=== PATIENT | female | born 1940 | race Caucasian/White ===

== ENCOUNTER 2022-04-24 12:37 | Inpatient (IN) | payer OTHER, MEDICAID ==
[~2022-04-24] VITALS: Ht 170.2 cm; Wt 81.6 kg
[~2022-04-24 12:37] MED LIST: ACET-2619 PO; ANTACID PO; ATI.5 PO; BISA10SU27 RC; LEVO-481 PO; METF-346 PO; PANT40EC PO; SERT100T PO; SIMV-30 PO; TRAM50TA1 PO; [UNRECOGNIZED DRUG - OTHER] PO
--- NOTE | 2022-04-24 12:42 | NUR ---
CHLOE DAMICO VIA [facility] TO BED 05.
[2022-04-24 12:45] VITALS: BP 120/68
[2022-04-24] MEDS ORDERED: NACL 0.9% 500 ML IV ONE ×2 (13:00→14:15)
--- NOTE | 2022-04-24 13:20 | NUR ---
PT BROUGHT BACK FROM [place] VIA [facility].
[2022-04-24 13:23] LABS: BASOPHILS # (AUTO) 0.1 K/uL (0.00-0.22); BASOPHILS % (AUTO) 1.1 % (0.0-2.0); EOSINOPHILS % (AUTO) 0.6 % (0.0-4.0); HEMATOCRIT 38.6 % (36-48); HEMOGLOBIN 12.7 g/dL (12.0-16.0); LYMPHOCYTES # (AUTO) 1.3 K/uL (2.5-16.5); LYMPHOCYTES % (AUTO) 18.1 % (20.5-51.1); MEAN CORPUSCULAR HEMOGLOBIN 28 pg (27-31); MEAN CORPUSCULAR HGB CONC 33 g/dL (33-37); MEAN CORPUSCULAR VOLUME 84.4 fL (80-94); MONOCYTES # (AUTO) 0.4 K/uL (0.8-1.0); MONOCYTES % (AUTO) 5.9 % (1.7-9.3); NEUTROPHILS # (AUTO) 5.2 K/uL (1.8-7.7); NEUTROPHILS % (AUTO) 74.3 % (42.2-75.2); PLATELET COUNT (AUTO) 325 K/uL (140-450); RED BLOOD CELL COUNT(AUTO) 4.58 MIL/uL (4.20-5.40); RED CELL DISTRIBUTION WIDTH 14.5 % (11.6-13.7)
[2022-04-24 13:41] LABS: ALBUMIN 3.2 g/dL (3.4-5.0); ANION GAP 15.6 (8-16); ASPARTATE AMINOTRANSFERASE 10 U/L (15-37); CARBON DIOXIDE 25.3 mmol/L (21-32); CHLORIDE 100 mmol/L (98-107); CREATININE 1.1 mg/dL (0.6-1.3); POTASSIUM 3.9 mmol/L (3.5-5.1); SODIUM SERUM 137 mmol/L (136-145); TOTAL BILIRUBIN 0.3 mg/dL (0.0-1.0); UREA NITROGEN, BLOOD 18 mg/dL (7-18)
[2022-04-24 13:48] LABS: GLUCOSE 450 mg/dL (74-106)
--- NOTE | 2022-04-24 14:15 | NUR ---
PT CATH BY SITE SURVEYOR AND WOOD BARKER. URINE OBTAINED AND STENT TO LAB.
--- NOTE | 2022-04-24 15:06 | NUR ---
COVID SWAB COLLECTED AND SENT TO LAB
--- NOTE | 2022-04-24 15:12 | NUR ---
81YR OLD FEMALE BIB EMS C/O ALOC /WEAKNESS. PT IS FROM [facility]. EMS SENT OUT FOR PT BEING MORE ALOC THAN NORMAL. PT IS A&OX1. BED BOUND . SKIN INTACT WARM AND DRY. HOB ELEVATED AND SIDE RAILS UP . BED AT LOWEST LEVEL.
[2022-04-24 15:49] LABS: BILIRUBIN,URINE 1+ (NEGATIVE); BLOOD, URINE TRACE-I (NEGATIVE); COLOR,URINE YELLOW (YELLOW); LEUKOCYTE ESTERASE ,URINE TRACE (NEGATIVE); NITRITE, URINE NEGATIVE (NEGATIVE); PH,URINE 5.5 (5.0-9.0); UGLUCOSE 3+ (NEGATIVE)
[2022-04-24 16:01] LABS: APPEARANCE,URINE CLOUDY (CLEAR)
[2022-04-24 16:13] LABS: RBC,URINE 0-5 /HPF (0-5); WBC,URINE 0-5 /HPF (0-5)
[2022-04-24 16:14] LABS: YEAST,URINE Many /HPF (None Seen)
[2022-04-24 16:19] LABS: URIC ACID CRYSTALS,URINE 0-10 /HPF (None Seen)
--- NOTE | 2022-04-24 17:17 | NUR ---
Patient appears to be resting in bed. Vital Signs within normal limits. Respirations even and unlabored.
[2022-04-24] MEDS ORDERED: ACETAMINOPHEN 325 MG TAB PO PRN ×2 (17:55→18:10)
[2022-04-24] MEDS ORDERED: ONDANSETRON 4 MG/2 ML VIAL IVP PRN ×2 (17:55→18:10)
[2022-04-24] MEDS ORDERED: DEXTROSE 50% 50 ML SYR IVP PRN (18:00)
[2022-04-24] MEDS ORDERED: DOCUSATE SODIUM 100 MG GELCAP PO PRN (18:10)
[2022-04-24] MEDS ORDERED: ZOLPIDEM 10 MG TAB PO PRN (18:10)
[2022-04-24] MEDS ORDERED: LEVOFLOXACIN 500 MG/D5W PREMIX 100 ML IV SCH (20:00)
[2022-04-24] MEDS: NACL 0.9% 1,000 ML IV SCH (20:11)
--- NOTE | 2022-04-24 20:12 | NUR ---
STARTED IV FLUIDS AT 75 ML/HR WITH PUMP. LIGHTS DIMMED PER PT REQUEST. ASKED PT QUESTIONS AND SHE COULD NOT RECLALL AND SAID "WHY ARE YOU ASKING ME ALL THESE QUESTIONS" . PT A&O X0
[2022-04-24] MEDS: BLOOD GLUCOSE MONITORING 1 DEV DEV FS SCH (21:00)
--- NOTE | 2022-04-24 21:05 | NUR ---
Patient will be admitted to care of DR. WILEY. Admited to TELEMTETRY. Will go to room 105A. Belongings list completed. Report to TU.
[2022-04-24 21:10] VITALS: BP 169/69
--- NOTE | 2022-04-24 21:10 | NUR ---
RECEIVED REPORT FROM ER NURSE. PATIENT IS AWAKE AND CONFUSED. RESPIRATION EVEN UNLABORED ON ROOM AIR. NO DISTRESS NOTED. SKIN IS WARM AND DRY. IV PATENT AND INTACT. LUNGS SOUNDS CLEAR UPON AUSCULTATION. BOWEL SOUNDS PRESENT IN ALL QUADRANTS. ABDOMEN SOFT AND NON-TENDER. SACRAL WOUND NOTED. PICTURE TAKEN. GENERALIZED WEAKNESS NOTED. MRSA SWAB. VITALS WERE TAKEN. ORIENT PATIENT TO ROOM, STAFF AND CALL LIGHT. ALL SAFETY MEASURES IN PLACE. BED IS AT LOW POSITION. CALL LIGHT WITHIN REACH. WILL CONTINUE TO MONITOR.
--- NOTE | 2022-04-24 21:45 | NUR ---
ALL SCHEDULED MEDS WERE GIVEN PER ORDER. WILL CONTINUE TO MONITOR.
[2022-04-24] MEDS: INSULIN LISPRO SLIDING SCALE 100 UNITS/ML VIAL SUBQ PRN (22:07)
[2022-04-25] VITALS: BP 143/85
--- NOTE | 2022-04-25 | NUR ---
VITALS WERE TAKEN. PATIENT IN STABLE CONDITION.
[2022-04-25] MEDS: NACL 0.9% 1,000 ML IV SCH ×2 (00:30→07:54)
--- NOTE | 2022-04-25 02:00 | NUR ---
WOUND CARE PROVIDED
[2022-04-25 04:00] VITALS: BP 157/77
--- NOTE | 2022-04-25 04:00 | NUR ---
AM CARE PROVIDED
[2022-04-25] MEDS: BLOOD GLUCOSE MONITORING 1 DEV DEV FS SCH ×4 (06:30→20:43)
[2022-04-25] MEDS: INSULIN LISPRO SLIDING SCALE 100 UNITS/ML VIAL SUBQ PRN ×4 (06:31→20:46)
--- NOTE | 2022-04-25 07:11 | NUR ---
ENDORSED PATIENT TO DAY SHIFT NURSE FOR CONTINUITY OF CARE
--- NOTE | 2022-04-25 07:12 | NUR ---
RECEIVED REPORT FROM WEB OPERATIONS LEAD NURSE FOR CONTINUITY OF CARE. PT IS AWAKE. A&O1. RESPIRATIONS EVEN AND UNLABORED ON ROOM AIR. NO DISTRESS NOTED. PT ON TELE MONITOR. IV SITE AT RIGHT WRIST 20G INFUSING NS AT 75 ML/ HR. CALL LIGHT WITHIN REACH. SAFETY PRECAUTIONS IN PLACE. WILL CONTINUE TO MONITOR.
[2022-04-25 07:14] LABS: BASOPHILS # (AUTO) 0.1 K/uL (0.00-0.22); BASOPHILS % (AUTO) 0.9 % (0.0-2.0); EOSINOPHILS # (AUTO) 0.1 K/uL (0-0.4); EOSINOPHILS % (AUTO) 1.3 % (0.0-4.0); HEMOGLOBIN 11.3 g/dL (12.0-16.0); LYMPHOCYTES # (AUTO) 1.5 K/uL (2.5-16.5); LYMPHOCYTES % (AUTO) 24.2 % (20.5-51.1); MEAN CORPUSCULAR HEMOGLOBIN 28 pg (27-31); MEAN CORPUSCULAR HGB CONC 33 g/dL (33-37); MEAN CORPUSCULAR VOLUME 84.3 fL (80-94); MONOCYTES # (AUTO) 0.5 K/uL (0.8-1.0); MONOCYTES % (AUTO) 8.4 % (1.7-9.3); NEUTROPHILS # (AUTO) 4.2 K/uL (1.8-7.7); NEUTROPHILS % (AUTO) 65.2 % (42.2-75.2); PLATELET COUNT (AUTO) 270 K/uL (140-450); RED BLOOD CELL COUNT(AUTO) 4.03 MIL/uL (4.20-5.40); RED CELL DISTRIBUTION WIDTH 14.6 % (11.6-13.7); WHITE BLOOD COUNT (AUTO) 6.4 K/uL (4.8-10.8)
--- NOTE | 2022-04-25 07:30 | NUR ---
Patient's Plan of Care was discussed and reviewed with YONG: ALTAGRACIA
[2022-04-25 07:46] LABS: ANION GAP 14.3 (8-16); CHLORIDE 106 mmol/L (98-107); CREATININE 1.1 mg/dL (0.6-1.3); GLUCOSE 261 mg/dL (74-106); POTASSIUM 3.3 mmol/L (3.5-5.1); SODIUM SERUM 143 mmol/L (136-145); UREA NITROGEN, BLOOD 19 mg/dL (7-18)
[2022-04-25 08:00] VITALS: BP 151/62
[2022-04-25] MEDS: POTASSIUM CHLORIDE 10 MEQ TABER PO PRN (08:59)
--- NOTE | 2022-04-25 09:09 | NUR ---
ADMINISTERED SCHEDULED MORNING MEDS. KDUR GIVEN FOR POTASSIUM 3.3. IV MG SULF GIVEN BY RONNIE KARIMI. PT TEACHING ABOUT MEDS GIVEN. PT VERBALIZED UNDERSTANDING. WILL CONTINUE TO MONITOR.
--- NOTE | 2022-04-25 09:12 | NUR ---
PATIENT HAS BEEN SCREENED AND CATEGORIZED MODERATE NUTRITION RISK. PATIENT WILL BE SEEN WITHIN 3-5 DAYS OF ADMISSION. MAKENNA BRAUN RD Addendum: 04/26/22 at [address] FNS CONSULT HAS BEEN RECEIVED FOR WOUNDS. PATIENT HAS BEEN RE-SCREENED HIGH RISK AND WILL BE SEEN WITHIN 1-2 DAYS OF RECEIVING THE FNS CONSULT. MAKENNA BRAUN RD
--- NOTE | 2022-04-25 09:28 | NUR ---
ADMINISTERED SCHEDULED MORNING MEDS. PT TEACHING ABOUT MEDS GIVEN. PT VERBALIZED UNDERSTANDING. POTASSIUM IS 3.3. WILL INFORM RN. Addendum: 04/25/22 at 0930 by Esthela Patterson LVN WRONG PT DOCUMENTED.
[2022-04-25] MEDS: MAG SULF 2000 MG/WATER PREMIX 50 ML IV PRN (09:32)
--- NOTE | 2022-04-25 09:47 | NUR ---
PRN MAG ADMINISTERED PER MD ORDER FOR MAG LEVEL OF 1.1. WILL CONTINUE TO MONITOR.
[2022-04-25] MEDS ORDERED: INSULIN LANTUS 100 UNITS/ML 10 ML VIAL SUBQ SCH (10:15)
[2022-04-25 12:00] VITALS: BP 150/74
[2022-04-25] MEDS: HYDRAGUARD CREAM TP SCH (12:23)
--- NOTE | 2022-04-25 12:24 | NUR ---
BLOOD GLUCOSE CHECK DONE. BS 281. SLIDING SCALE INSULIN ADMINISTERED.
--- NOTE | 2022-04-25 13:35 | NUR ---
P.T. NOTES P.T. EVAL COMPLETED; REFER TO EVAL FOR DETAILS.
--- NOTE | 2022-04-25 14:28 | NUR ---
DC PLANNIN YRS OLD FEMALE PATIENT WAS ADMITTED FROM [facility] WITH A DX OF ISAAC. PATIENT HAS A HX OF DM, HTN, HLD, OSTEOARTHRITIS AND KIDNEY STONE AND UTI. PATIENT WAS RECENTLY DC TO [facility] AND SENT BACK TO [facility] ON March. CXR SHOWED NO ACUTE CARDIOPULMONARY DISEASE. RAPID COVID TEST NEGATIVE. HEAD CT NO ACUTE INTRACRANIAL PROCESS. URINE CULTURE PENDING. ADMINISTERED IVF, IV ABX LEVAQUIN. PT EVAL PENDING. DC PLAN PER 'S RECOMMENDATIONS. CM TO FOLLOW Addendum: 04/30/22 at 1052 by Mandy Perez RN DC PLANNING: CALLED [facility] SPOKE WITH MONSTER STATED THEY CAN NOT PROVIDE THE CARE SHE NEEDS ANY MORE , HER SAVITA VENDING MACHINE TECHNICIAN IS LOOKING FOR PLACEMENT. CALLED SAVITA SPOKE WITH ROSEMARY ROSE STATED VENDING MACHINE TECHNICIAN ECTOR IS WORKING ON PLACEMENT AND WILL CONTACT US. CM TO FOLLOW Addendum: 05/01/22 at 1057 by Mandy Perez RN DC PLANNING: PATIENT GOT ACCEPTED AT [facility] .RECEIVED AUTHORIZATION FROM ROSEMARY AT [facility] FOR CEC AND DL TRANSPORT [id number]. PATIENT CAN GO TO ROOM [facility] # TO GIVE REPORT [phone]. DL TRANSPORT WILL AUTOMOTIVE PARTS INTERPRETER PATIENT AT 2 PM. NOTIFIED BERNA LIANG CM TO FOLLOW
[2022-04-25 16:00] VITALS: BP 153/77
--- NOTE | 2022-04-25 16:05 | NUR ---
DID ROUNDS. PT COMFORTABLY SITTING IN BED, WATCHING TV. NO DISTRESS NOTED. NO COMPLAINTS OF PAIN. CALL LIGHT WITHIN REACH. SAFETY PRECAUTIONS IN PLACE. WILL CONTINUE TO MONITOR.
--- NOTE | 2022-04-25 16:55 | NUR ---
BLOOD GLUCOSE CHECK DONE. BS 237. SLIDING SCALE INSULIN ADMINISTERED. Addendum: 04/25/22 at 1714 by Esthela Patterson LVN ERROR
--- NOTE | 2022-04-25 17:14 | NUR ---
BLOOD GLUCOSE 237. PT REFUSED TO TAKE SLIDING SCALE INSULIN. ATTEMPTED 2X. ASKED HELP FROM RONNIE KARIMI. DISCUSSED WITH THE PT THE IMPORTANCE AND RISK OF NOT TAKING THE INSULIN. PT VERBALIZED UNDERSTANDING AND AGAIN REFUSED. WILL CONTINUE TO MONITOR.
--- NOTE | 2022-04-25 18:53 | NUR ---
DID ROUNDS. PT SITTING UPRIGHT IN BED, EATING DINNER. NO DISTRESS NOTED. CALL LIGHT WITHIN REACH. SAFETY PRECAUTIONS IN PLACE. WILL CONTINUE TO MONITOR.
--- NOTE | 2022-04-25 19:12 | NUR ---
ENDORSED PT TO MARKET BASKET MAKER NURSE FOR CONTINUITY OF CARE. ALL NEEDS MET THROUGHOUT SHIFT. PT IS STABLE.
[2022-04-25 20:00] VITALS: BP 178/71
[2022-04-25] MEDS: LEVOFLOXACIN 250 MG/D5 PREMIX 50 ML IV SCH (20:23)
[2022-04-26] VITALS: BP 156/74
[2022-04-26 04:00] VITALS: BP 128/75
[2022-04-26] MEDS: BLOOD GLUCOSE MONITORING 1 DEV DEV FS SCH ×4 (06:06→22:00)
[2022-04-26] MEDS: INSULIN LISPRO SLIDING SCALE 100 UNITS/ML VIAL SUBQ PRN ×4 (06:07→22:07)
--- NOTE | 2022-04-26 07:20 | NUR ---
RECEIVED REPORT FROM ELECTRIC METER TECHNICIAN NURSE FOR CONTINUITY OF CARE. PT IS SLEEPING, EASILY AROUSABLE BY VERBAL STIMULI. RESPIRATIONS EVEN AND UNLABORED ON RA. A&O1 TO NAME. PT ON TELE MONITOR. PT INCONTINENT TO BLADDER AND BOWEL. IV SITE AT RIGHT WRIST 20G INFUSING NS AT 75ML/HR. CALL LIGHT WITHIN REACH. SAFETY PRECAUTIONS IN PLACE. WILL CONTINUE TO MONITOR.
[2022-04-26 07:27] LABS: BASOPHILS # (AUTO) 0.1 K/uL (0.00-0.22); EOSINOPHILS # (AUTO) 0.1 K/uL (0-0.4); HEMATOCRIT 32.1 % (36-48); HEMOGLOBIN 10.8 g/dL (12.0-16.0); LYMPHOCYTES # (AUTO) 2.1 K/uL (2.5-16.5); LYMPHOCYTES % (AUTO) 34.2 % (20.5-51.1); MEAN CORPUSCULAR HEMOGLOBIN 29 pg (27-31); MEAN CORPUSCULAR HGB CONC 34 g/dL (33-37); MEAN CORPUSCULAR VOLUME 84.3 fL (80-94); MONOCYTES # (AUTO) 0.5 K/uL (0.8-1.0); MONOCYTES % (AUTO) 8.6 % (1.7-9.3); NEUTROPHILS # (AUTO) 3.3 K/uL (1.8-7.7); NEUTROPHILS % (AUTO) 54.2 % (42.2-75.2); PLATELET COUNT (AUTO) 251 K/uL (140-450); RED BLOOD CELL COUNT(AUTO) 3.81 MIL/uL (4.20-5.40); RED CELL DISTRIBUTION WIDTH 14.4 % (11.6-13.7)
[2022-04-26 07:53] LABS: ANION GAP 12.1 (8-16); CARBON DIOXIDE 25.6 mmol/L (21-32); CHLORIDE 104 mmol/L (98-107); CREATININE 1.1 mg/dL (0.6-1.3); GLUCOSE 255 mg/dL (74-106); POTASSIUM 3.7 mmol/L (3.5-5.1); SODIUM SERUM 138 mmol/L (136-145); UREA NITROGEN, BLOOD 14 mg/dL (7-18)
[2022-04-26 08:00] VITALS: BP 181/78
--- NOTE | 2022-04-26 08:30 | NUR ---
SBP 180'S, ASYMPTOMATIC. MD DOING ROUNDS, MADE AWARE. AWAITING FOR ORDERS.
[2022-04-26] MEDS ORDERED: INSULIN LANTUS 100 UNITS/ML 10 ML VIAL SUBQ SCH (09:00)
[2022-04-26] MEDS: HYDRAGUARD CREAM TP SCH (09:04)
--- NOTE | 2022-04-26 09:13 | NUR ---
ADMINISTERED SCHEDULED MORNING MEDS. PT TEACHING ABOUT MEDS GIVEN. PT VERBALIZED UNDERSTANDING.
[2022-04-26] MEDS: MAG SULF 2000 MG/WATER PREMIX 50 ML IV PRN (09:45)
--- NOTE | 2022-04-26 09:45 | NUR ---
IV MG SULF ADMINISTERED BY RONNIE PICKETT FOR MG 1.2. NO ADVERSE REACTION NOTED. WILL CONTINUE TO MONITOR.
--- NOTE | 2022-04-26 10:20 | NUR ---
WOUND CARE NOTE: SKIN ASSESSMENT DONE WITH THIS 81 Y/O PT, ADMITTED WITH INITIAL DX AMS. PAST MEDICAL HX INCLUDES DIABETES, HTN, HYPERLIPIDEMIA, OSTEOARTHRITIS, AND HX OF KIDNEY STONES AND ADMITTED RECENTLY FOR UTI. ALL ABOVE INFORMATION OBTAINED FROM ADMISSION H&P.PT ADMITTED WITH PRESSURE INJURY TO SACRAL AREA, PT IS AWAKE, CONFUSE, SKIN IS WARM AND DRY, BLE HAIR GROWTH, NO EDEMA. DORSAL PEDAL PULSES PRESENT AND NORMAL. CAPILLARY REFILLED < 2 SEC. X 10 TOES. INCONTINENT OF BOWEL AND BLADDER. PLAN OF CARE DISCUSSED WITH PRIMARY RN. -MOISTURE ASSOCIATED DERMATITIS TO PERINEUM AND LOWER BUTTOCKS, SKIN RED, MOIST, INTACT -PRESSURE INJURY STAGE 2 SACRAL AREA 1X1CM SUPERFICIAL DEPTH, WOUND BED 100% RED TISSUE, NO ODOR, JUAN MANUEL-WOUND SKIN MOIST AND INTACT, NO ODOR, PAIN 0/10 RECOMMENDATIONS: -CLEANSE SACRAL WOUND WITH NS, PAT DRY, APPLY HYDROGEL AND COVER WITH ISLAND DRESSING QD AND PRN IF SOILING -APPLY Z GUARD TO PERINEUM AND LOWER BUTTOCKS BID AND PRN IF SOILING -POSITIONING: TURN AND REPOSITION PATIENT Q 2H OR SOONER USE PILLOWS TO KEEP BONY PROMINENCES FROM DIRECT CONTACT WITH SURFACES USE REPOSITIONING WEDGES TO PROVIDE 30-DEGREE ANGLE FOR SIDE LYING POSITIONS OFFLOADING OR FOAM DRESSING TO ALL TUBING TO PREVENT MEDICAL DEVICES RELATED PRESSURE INJURY -RE-EVALUATING AND MANAGING INCONTINENCE MONITOR SKIN CONDITION DURING POSITION CHANGE DO NOT MASSAGE REDNESS, BONY PROMINENCES FREQUENT JUAN MANUEL-CARE AND PROVIDE BARRIER CREAMS PRN IF SOILING MOISTURE CONTROL BY OFFER BED WHALEN/URINAL /ABSORBENT PAD TO WICK AND HOLD MOISTURE KEEP SKIN DRY AND PROTECT FROM FRICTION -MANAGE FRICTION/SHEAR/MOBILITY KEEP HOB AT THE LOWEST LEVEL OF ELEVATION NO MORE THAN 30 DEGREE UNLESS OTHERWISE CONTRAINDICATED USE LIFT SHEET OR TRANSFER DEVICE TO MOVE PATIENT AND PREVENT LATERAL SHEER. PROTECT HEELS, ELBOWS BONY PROMINENCES WITH SKIN BERRIES OR FOAM DRESSING IF EXPOSED TO FRICTION OFFLOAD BILATERAL HEELS BY PLACING PILLOWS UNDER CALVES AT ALL TIMES, UNLESS OTHERWISE CONTRAINDICATED -PRESSURE REDISTRIBUTION SURFACE THERAPY JOSEPH ISOFLEX MATTRESS -NUTRITION: PLEASE FOLLOW RD RECOMMENDATIONS AND OFFER NUTRITION SUPPLEMENTS IF ORDERED
[2022-04-26] MEDS: amLODIPine 5 MG TAB PO SCH (11:43)
--- NOTE | 2022-04-26 11:43 | NUR ---
BLOOD GLUCOSE 235. ADMINISTERED SLIDING SCALE INSULIN. SCHEDULED BP MED GIVEN. PT TEACHING ABOUT MEDS DONE. PT VERBALIZED UNDERSTANDING. WILL CONTINUE TO MONITOR.
[2022-04-26 12:00] VITALS: BP 166/73
--- NOTE | 2022-04-26 12:09 | NUR ---
PHYSICAL THERAPY CO-SIGN The Physical Therapy Progress Notes documented by Commercial Helicopter Pilot have been reviewed. Reviewed/Co-Signed by: Yolette Mccabe Documentation Done by: FILOMENA BUCKNER PTA Addendum: 04/26/22 at 1209 by Yolette Mccabe PT Amended: Links added.
[2022-04-26] MEDS: Z-GUARD PASTE TP SCH (12:10)
--- NOTE | 2022-04-26 12:15 | NUR ---
CLEANED AND CHANGED PT BEDDINGS. APPLIED TP Z-GUARD AND HYDROGEL ORDERED. PT REMAINED CLEAN AND DRY.
--- NOTE | 2022-04-26 12:15 | NUR ---
CLEANED AND CHANGED PT BEDDINGS. APPLIED TP Z-GUARD AND HYDRAGUARD ORDERED. Addendum: 04/26/22 at 1219 by Esthela Patterson LVN WITH CORRECTION
--- NOTE | 2022-04-26 13:58 | NUR ---
04/26/22 RD INITIAL ASSESSMENT COMPLETED PLEASE REFER TO NUTRITION ASSESSMENT UNDER CARE ACTIVITY FOR ESTIMATED NUTRITIONAL NEEDS. 1. CONTINUE CCHO 60GM DIET TOLERATED 2. RECOMMEND GLUCERNA 1XDAY AND PROSOURCE BID PER RX PROTOCOL 3. PROVIDED DIABETES NUTRITION EDUCATION HANDOUTS 4. MONITOR PO INTAKE 5. RD TO FOLLOW-UP 3-5 DAYS, MODERATE RISK ALEE BRAUN RD
[2022-04-26] MEDS: CHLORHEXADINE GLUC 2% CLOTH TP SCH (15:00)
[2022-04-26] MEDS: MUPIROCIN CA NASAL 2% 1GM TUBE NS SCH (15:00)
--- NOTE | 2022-04-26 15:16 | NUR ---
PT SBP 190'S. ORDERED PRN HYDRALAZINE.
[2022-04-26] MEDS: hydrALAZINE 20 MG/ML VIAL IVP PRN ×2 (15:37→22:05)
--- NOTE | 2022-04-26 15:37 | NUR ---
RN ADMINISTERED PRN BP MED. WILL CONTINUE TO MONITOR. PT MRSA POSITIVE. ADMINISTERED DR LOTTIE.
[2022-04-26 16:00] VITALS: BP 197/86
--- NOTE | 2022-04-26 17:10 | NUR ---
BLOOD GLUCOSE 222. SLIDING SCALE INSULIN ADMINISTERED.
--- NOTE | 2022-04-26 19:15 | NUR ---
ENDORSED PT TO DEPARTMENT SECRETARY NURSE FOR CONTINUITY OF CARE. ALL NEEDS MET THROUGHOUT SHIFT. PT IS STABLE.
--- NOTE | 2022-04-26 19:20 | NUR ---
RECEIVED REPORT FROM AM NURSE FOR CONTINUITY OF CARE. PT IS STABLE. AWAKE SITTING UP IN BED EATING DINNER. CONSUMED ONLY 25%. A&OX1 NAME, CONFUSED FORGETFUL. FOLLOWS COMMANDS SOMETIMES. DENIES PAIN AT THIS TIME. ON RM AIR/O2 WITH NO ACUTE DISTRESS.RR EVEN AND UNLABORED WITH EQUAL CHEST RISE. GI INTACT. PT'S SKIN IS NOT INTACT IV R WRIST 20G S.L. IS FLUSHED AND PATENT. PT IS BEDBOUND AND INCONTINENT. ALL SAFETY MEADSURES IN PLACE.CALL LIGHT WITHIN REACH. WILL CONTINUE TO MONITOR.
[2022-04-26 20:00] VITALS: BP 179/91
--- NOTE | 2022-04-26 21:30 | NUR ---
HS MEDS GIVEN. BS= 241 COVERED WITH SCHEDULED 10 UNITS LANTUS INSULIN PLUS 4 UNITS HUMALOG INSULIN PER SLIDING SCALE. WILL CONTINUE WITH FREQ ROUNDS.
[2022-04-26] MEDS: LEVOFLOXACIN 250 MG/D5 PREMIX 50 ML IV SCH (21:51)
--- NOTE | 2022-04-26 22:05 | NUR ---
BP= 179/91 RECEIVED PRN APRESOLINE 10 MG IVP PER PROTOCOL. REASSESSED AT 2305 MED EFFECTIVE BP NOW 158/65. WILL CONTINUE TO MONITOR PATIENT.
[2022-04-27] VITALS: BP 158/65
--- NOTE | 2022-04-27 01:00 | NUR ---
TURNED AND REPOSITIONED Q 2HRS. INCONTINENT OF BOWEL X1 AND URINE X2. JUAN MANUEL CARE GIVEN . CHANGED STAGE SACRAL / R BUTTOCK WD. APPLIED HYDROGEL AND FOAM DRESSING PER ORDER. Z- GUARD PASTE APPLIED TO GROIN AND SKIN FOLDS. CONTINUE TO OBSERVE.
[2022-04-27] MEDS: Z-GUARD PASTE TP SCH ×2 (01:11→13:39)
[2022-04-27 04:00] VITALS: BP 159/66
--- NOTE | 2022-04-27 05:10 | NUR ---
STRAIGHT CATHED PT FOR URINE SPECIMEN FOR UA AND DRUG SCREEN. AT 0630 YH=766 4 UNITS HUMALOG INSULIN GIVEN PER SLIDING SCALE.
[2022-04-27] MEDS: BLOOD GLUCOSE MONITORING 1 DEV DEV FS SCH ×4 (06:29→22:50)
[2022-04-27] MEDS: INSULIN LISPRO SLIDING SCALE 100 UNITS/ML VIAL SUBQ PRN ×4 (06:29→23:06)
[2022-04-27 07:27] LABS: BASOPHILS # (AUTO) 0.1 K/uL (0.00-0.22); BASOPHILS % (AUTO) 0.9 % (0.0-2.0); EOSINOPHILS # (AUTO) 0.1 K/uL (0-0.4); EOSINOPHILS % (AUTO) 1.5 % (0.0-4.0); HEMATOCRIT 34.4 % (36-48); HEMOGLOBIN 11.5 g/dL (12.0-16.0); LYMPHOCYTES # (AUTO) 1.8 K/uL (2.5-16.5); LYMPHOCYTES % (AUTO) 27.7 % (20.5-51.1); MEAN CORPUSCULAR HEMOGLOBIN 28 pg (27-31); MEAN CORPUSCULAR HGB CONC 33 g/dL (33-37); MEAN CORPUSCULAR VOLUME 84.6 fL (80-94); MONOCYTES # (AUTO) 0.6 K/uL (0.8-1.0); MONOCYTES % (AUTO) 8.5 % (1.7-9.3); NEUTROPHILS % (AUTO) 61.4 % (42.2-75.2); PLATELET COUNT (AUTO) 276 K/uL (140-450); RED BLOOD CELL COUNT(AUTO) 4.06 MIL/uL (4.20-5.40); RED CELL DISTRIBUTION WIDTH 14.7 % (11.6-13.7); WHITE BLOOD COUNT (AUTO) 6.4 K/uL (4.8-10.8)
--- NOTE | 2022-04-27 07:30 | NUR ---
ENDORSED PT REPORT TO AM NURSE FOR CONTINUITY OF CARE. PT IS STABLE. ALL NEEDS MET THROUGHOUT THE SHIFT.
--- NOTE | 2022-04-27 07:31 | NUR ---
RECEIVED REPORT FROM COMMUNITY HEALTH PROGRAM COORDINATOR NURSE FOR CONTINUITY OF CARE. PT IS AWAKE. RESPIRATIONS EVEN AND UNLABORED ON ROOM AIR. NO DISTRESS NOTED. PT ON TELE MONITOR. IV SITE AT RIGHT WRIST 20G INFUSING NS AT 75 ML/ HR. CALL LIGHT WITHIN REACH. SAFETY PRECAUTIONS IN PLACE. WILL CONTINUE TO MONITOR.
[2022-04-27 07:45] LABS: ANION GAP 14.3 (8-16); CHLORIDE 105 mmol/L (98-107); CREATININE 0.9 mg/dL (0.6-1.3); GLUCOSE 219 mg/dL (74-106); POTASSIUM 3.3 mmol/L (3.5-5.1); SODIUM SERUM 139 mmol/L (136-145); UREA NITROGEN, BLOOD 9 mg/dL (7-18)
[2022-04-27 08:00] VITALS: BP 146/69
[2022-04-27] MEDS: amLODIPine 5 MG TAB PO SCH (08:54)
[2022-04-27] MEDS: POTASSIUM CHLORIDE 10 MEQ TABER PO PRN (08:55)
[2022-04-27] MEDS: INSULIN LANTUS 100 UNITS/ML 10 ML VIAL SUBQ SCH (08:59)
[2022-04-27] MEDS: HYDRAGUARD CREAM TP SCH (09:10)
--- NOTE | 2022-04-27 09:10 | NUR ---
ADMINISTER SCHEDULED MORNING MEDS. K-DUR GIVEN FOR POTASSIUM 3.3. PT TEACHING ABOUT MEDS GIVEN. PT VERBALIZED UNDERSTANDING. WILL CONTINUE TO MONITOR.
[2022-04-27 12:00] VITALS: BP 146/68
--- NOTE | 2022-04-27 12:05 | NUR ---
BLOOD GLUCOSE CHECK DONE. BS 252. SLIDING SCALE INSULIN GIVEN.
[2022-04-27 13:08] LABS: BARBITURATE, URINE NEGATIVE ng/ml (NEG <=200); BENZODIAZEPINE, URINE NEGATIVE ng/mL (NEG <=200); CANNABINOID, URINE NEGATIVE ng/mL (NEG <=50); COCAINE, URINE NEGATIVE ng/mL (NEG <=300); OPIATE, URINE NEGATIVE ng/mL (NEG <=2000); PHENCYCLIDINE SCREEN,URINE NEGATIVE ng/mL (NEG <=25)
[2022-04-27] MEDS: SKINTEGRITY HYDROGEL TP SCH (13:39)
--- NOTE | 2022-04-27 14:02 | NUR ---
DID ROUNDS. PT IN BED, WATCHING TV. NO DISTRESS NOTED. DENIES PAIN. CALL LIGHT WITHIN REACH. SAFETY PRECAUTIONS IN PLACE. WILL CONTINUE TO MONITOR.
[2022-04-27] MEDS: CHLORHEXADINE GLUC 2% CLOTH TP SCH (15:08)
[2022-04-27] MEDS: MUPIROCIN CA NASAL 2% 1GM TUBE NS SCH (15:08)
[2022-04-27 16:00] VITALS: BP 142/83
--- NOTE | 2022-04-27 17:05 | NUR ---
BLOOD GLUCOSE CHECK DONE. BS 221. SLIDING SCALE INSULIN ADMINISTERED.
--- NOTE | 2022-04-27 18:02 | NUR ---
PT DOWNGRADED TO MS PER MD.
--- NOTE | 2022-04-27 19:23 | NUR ---
ENDORSED PT TO RV REPAIR TECHNICIAN NURSE FOR CONTINUITY OF CARE. ALL NEEDS MET THROUGHOUT SHIFT. PT IS STABLE.
--- NOTE | 2022-04-27 19:30 | NUR ---
RECEIVED REPORT FROM DAY SHIFT NURSE FOR CONTINUITY OF CARE. PATIENT IS A&O X1 AND IS HARD OF HEARING. PATIENT IS ON ROOM AIR, BREATHING IS NORMAL WITH SYMMETRICAL RISE AND FALL OF CHEST. IV IS A 20G IN RIGHT WRIST RUNNING NS AT 75ML/HR. PATIENT IS SITTING IN HIGH FOWLERS POSITION. EYES ARE OPEN, BUT SHE IS NOT ALERT OR ORIENTED TO WHAT'S GOING ON. BED IS IN LOWEST POSITION, WHEELS LOCKED, CALL LIGHT IS IN PLACE. WILL CONTINUE TO OBSERVE PATIENT.
[2022-04-27 20:00] VITALS: BP 153/82
[2022-04-27] MEDS: LEVOFLOXACIN 250 MG/D5 PREMIX 50 ML IV SCH (22:50)
--- NOTE | 2022-04-27 23:15 | NUR ---
MEDICATIONS WERE GIVEN. PATIENT TOLERATED WELL. BS WAS 209; GAVE 4 UNITS OF HUMALOG FOR COVERAGE. PATIENT WAS RESTING IN HIGH FOWLERS POSITION UPON ENTERING ROOM. PATIENT WAS ABLE TO GO BACK TO SLEEP AFTER ADMINISTRATION OF MEDICATIONS. BREATHING WAS NORMAL WITH SYMMETRICAL RISE AND FALL OF CHEST. BED WAS IN LOWEST POSITION, WHEELS LOCKED, CALL LIGHT IN REACH. WILL CONTINUE TO OBSERVE PATIENT.
[2022-04-28] MEDS: Z-GUARD PASTE TP SCH ×2 (01:00→12:19)
--- NOTE | 2022-04-28 01:00 | NUR ---
LOOKED IN ON PATIENT. PATIENT WAS SLEEPING IN HIGH FOWLERS POSITION. IV WAS RUNNING NS AT 75ML. PATIENT'S BREATHING WAS NORMAL WITH SYMMETRICAL RISE AND FALL OF CHEST. WILL CONTINUE TO OBSERVE PATIENT.
--- NOTE | 2022-04-28 03:42 | NUR ---
LOOKED IN ON PATIENT. PATIENT WAS SLEEPING IN HIGH FOWLERS POSITION. IVF WAS RUNNING NS AT 75ML. BREATHING WAS NORMAL WITH SYMMETRICAL RISE AND FALL OF CHEST. BED WAS IN LOWEST POSITION, WHEELS LOCKED, CALL LIGHT IN PLACE. WILL CONTINUE TO OBSERVE PATIENT.
[2022-04-28 06:46] LABS: BASOPHILS # (AUTO) 0.1 K/uL (0.00-0.22); EOSINOPHILS # (AUTO) 0.1 K/uL (0-0.4); EOSINOPHILS % (AUTO) 1.4 % (0.0-4.0); HEMATOCRIT 32.3 % (36-48); HEMOGLOBIN 10.8 g/dL (12.0-16.0); LYMPHOCYTES # (AUTO) 1.9 K/uL (2.5-16.5); LYMPHOCYTES % (AUTO) 30.6 % (20.5-51.1); MEAN CORPUSCULAR HEMOGLOBIN 28 pg (27-31); MEAN CORPUSCULAR HGB CONC 33 g/dL (33-37); MEAN CORPUSCULAR VOLUME 85.1 fL (80-94); MONOCYTES # (AUTO) 0.5 K/uL (0.8-1.0); MONOCYTES % (AUTO) 8.7 % (1.7-9.3); NEUTROPHILS # (AUTO) 3.6 K/uL (1.8-7.7); NEUTROPHILS % (AUTO) 58.3 % (42.2-75.2); PLATELET COUNT (AUTO) 250 K/uL (140-450); RED BLOOD CELL COUNT(AUTO) 3.79 MIL/uL (4.20-5.40); RED CELL DISTRIBUTION WIDTH 14.9 % (11.6-13.7); WHITE BLOOD COUNT (AUTO) 6.1 K/uL (4.8-10.8)
[2022-04-28] MEDS: BLOOD GLUCOSE MONITORING 1 DEV DEV FS SCH ×4 (07:18→21:36)
--- NOTE | 2022-04-28 07:20 | NUR ---
ENDORSED CARE OF PATIENT TO DAY SHIFT NURSE. PATIENT IS STABLE.
--- NOTE | 2022-04-28 07:21 | NUR ---
RECEIVED BEDSIDE REPORT FROM AREA COUNSELOR NURSE, FOR CONTINUOUS OF CARE. PT RESTING, NO DISTRESS NOTED, AWAKE ALERT, ABLE TO LET NEEDS KNOWN, IV TO RIGHT HAND 20G PATENT INTACT, INFUSING WELL. PT ON ROOM AIR, NO SOB NOTED, INITIAL ASSESSMENT DONE, ALL SAFETY PRECAUTION MET, CALL LIGHT WITHIN REACH, WILL CONTINUE TO MONITOR.
[2022-04-28 07:28] LABS: ANION GAP 13.3 (8-16); CARBON DIOXIDE 21.7 mmol/L (21-32); CHLORIDE 109 mmol/L (98-107); CREATININE 1.1 mg/dL (0.6-1.3); GLUCOSE 170 mg/dL (74-106); SODIUM SERUM 140 mmol/L (136-145); UREA NITROGEN, BLOOD 10 mg/dL (7-18)
[2022-04-28] MEDS: INSULIN LISPRO SLIDING SCALE 100 UNITS/ML VIAL SUBQ PRN ×2 (07:40→12:15)
[2022-04-28 08:00] VITALS: BP 148/87
[2022-04-28] MEDS: amLODIPine 5 MG TAB PO SCH (08:55)
[2022-04-28] MEDS: INSULIN LANTUS 100 UNITS/ML 10 ML VIAL SUBQ SCH (08:58)
--- NOTE | 2022-04-28 08:58 | NUR ---
DUE MEDICATIONS ADMINISTERED, PT TOLERATED WELL, NO DISTRESS NOTED, WILL CONTINUE TO MONTIOR.
[2022-04-28] MEDS: HYDRAGUARD CREAM TP SCH (09:02)
[2022-04-28] MEDS ORDERED: amLODIPine 5 MG TAB PO ONE (12:15)
[2022-04-28] MEDS: SKINTEGRITY HYDROGEL TP SCH (12:19)
[2022-04-28] MEDS: MUPIROCIN CA NASAL 2% 1GM TUBE NS SCH (15:19)
[2022-04-28] MEDS: CHLORHEXADINE GLUC 2% CLOTH TP SCH (15:19)
[2022-04-28 16:00] VITALS: BP 166/86
[2022-04-28] MEDS: hydrALAZINE 20 MG/ML VIAL IVP PRN (16:07)
--- NOTE | 2022-04-28 16:07 | NUR ---
PT BP ELEVATED, 166/86, MEDICATION PRN HYDRALAZINE GIVEN, PT TOLERATED WELL, WILL CONTINUE TO MONITOR.
--- NOTE | 2022-04-28 16:30 | NUR ---
ENDORSED PT TO RONNIE ZARATE FOR CONTINUOUS OF CARE.
--- NOTE | 2022-04-28 16:30 | NUR ---
RECEIVED BEDSIDE REPORT FROM PIYUSH TRUJILLO FOR CONTINUITY OF CARE.
--- NOTE | 2022-04-28 16:55 | NUR ---
PT REFUSED ACCUCHECK. EDUCATED PT ON HYPO/HYPERGLYCEMIA AND RISK OF NOT CHECKING BS. PT SAID "NO! IM TIRED OF YOU GUYS POKING ME" AND WOULD NOT LET ME TOUCH HER HANDS. SHE PULLED HER HANDS AWAY 3X.
--- NOTE | 2022-04-28 18:40 | NUR ---
PT ON PHONE WITH DAUGHTER. CALL LIGHT WITHIN REACH. WILL CONTINUE TO MONITOR.
--- NOTE | 2022-04-28 19:12 | NUR ---
ENDORSED BEDSIDE REPORT TO MIKAEL ALICEA RN FOR CONTINUITY OF CARE. PT IN NO ACUTE DISTRESS. ALL QUESTIONS ANSWERED.
--- NOTE | 2022-04-28 19:30 | NUR ---
RECEIVED REPORT FROM DAY SHIFT NURSE FOR CONTINUITY OF CARE. PATIENT IS A&O X1 AND IS HARD OF HEARING. PATIENT IS SITTING UP IN SEMI FOWLERS POSITION. PATIENT IS ON ROOM AIR, BREATHING NORMALLY WITH SYMMETRICAL RISE AND FALL OF CHEST. IV IS 20G ON RIGHT WRIST, RUNNING NS AT 5ML TKO. PATIENT IS ON PURE-WICK. BED IS IN LOWEST POSITION, WHEELS LOCKED, CALL LIGHT IN PLACE. WILL CONTINUE TO OBSERVE.
[2022-04-28 20:00] VITALS: BP 161/90
[2022-04-28] MEDS: LEVOFLOXACIN 250 MG/D5 PREMIX 50 ML IV SCH (21:19)
--- NOTE | 2022-04-28 21:50 | NUR ---
GAVE 2100 MEDICATIONS. PATIENT TOLERATED WELL. BS WAS 147, NO COVERAGE WAS NEEDED. SUCTION CANISTER WAS EMPTIED, DUMPED 900ML OF URINE. PATIENT IS AWAKE AND BEING CLEANED BY JEAN CARLOS VARNER. BED IS IN LOWEST POSITION, WHEELS LOCKED, CALL LIGHT IN PLACE. WILL CONTINUE TO OBSERVE.
--- NOTE | 2022-04-28 23:19 | NUR ---
LOOKED IN ON PATIENT. PATIENT IS AWAKE BUT LYING IN SEMI FOWLERS POSITION. IVF RUNNING NS AT 5ML TKO. SUCTION IS STILL RUNNING AND FUNCTIONING PROPERLY WITH PURE-WICK ATTACHED. BREATHING IS NORMAL WITH SYMMETRICAL RISE AND FALL OF CHEST. WILL CONTINUE TO OBSERVE PATIENT.
--- NOTE | 2022-04-29 01:27 | NUR ---
LOOKED IN ON PATIENT. PATIENT WAS SLEEPING. IVF WAS RUNNING NS 5ML TKO. PATIENT IS BREATHING NORMALLY WITH SYMMETRICAL RISE AND FALL OF CHEST. BED IS IN LOWEST POSITION, WHEELS LOCKED CALL LIGHT IN REACH. WILL CONTINUE TO OBSERVE PATIENT.
[2022-04-29] MEDS: Z-GUARD PASTE TP SCH ×2 (01:57→13:21)
--- NOTE | 2022-04-29 03:00 | NUR ---
LOOKED IN ON PATIENT. PATIENT WAS SLEEPING. BREATHING WAS NORMAL WITH SYMMETRICAL RISE AND FALL OF CHEST. WILL CONTINUE TO OBSERVE.
[2022-04-29 04:00] VITALS: BP 168/83
[2022-04-29 06:58] LABS: BASOPHILS # (AUTO) 0.1 K/uL (0.00-0.22); BASOPHILS % (AUTO) 0.9 % (0.0-2.0); EOSINOPHILS # (AUTO) 0.1 K/uL (0-0.4); EOSINOPHILS % (AUTO) 1.7 % (0.0-4.0); HEMOGLOBIN 11.5 g/dL (12.0-16.0); LYMPHOCYTES # (AUTO) 1.4 K/uL (2.5-16.5); LYMPHOCYTES % (AUTO) 23.3 % (20.5-51.1); MEAN CORPUSCULAR HEMOGLOBIN 29 pg (27-31); MEAN CORPUSCULAR HGB CONC 34 g/dL (33-37); MEAN CORPUSCULAR VOLUME 84.6 fL (80-94); MONOCYTES # (AUTO) 0.5 K/uL (0.8-1.0); MONOCYTES % (AUTO) 7.6 % (1.7-9.3); NEUTROPHILS # (AUTO) 4.1 K/uL (1.8-7.7); NEUTROPHILS % (AUTO) 66.5 % (42.2-75.2); PLATELET COUNT (AUTO) 251 K/uL (140-450); RED BLOOD CELL COUNT(AUTO) 4.02 MIL/uL (4.20-5.40); RED CELL DISTRIBUTION WIDTH 14.9 % (11.6-13.7); WHITE BLOOD COUNT (AUTO) 6.1 K/uL (4.8-10.8)
[2022-04-29 07:13] LABS: CARBON DIOXIDE 21.6 mmol/L (21-32); CHLORIDE 107 mmol/L (98-107); CREATININE 0.9 mg/dL (0.6-1.3); GLUCOSE 175 mg/dL (74-106); POTASSIUM 3.6 mmol/L (3.5-5.1); SODIUM SERUM 141 mmol/L (136-145); UREA NITROGEN, BLOOD 7 mg/dL (7-18)
[2022-04-29] MEDS: BLOOD GLUCOSE MONITORING 1 DEV DEV FS SCH ×4 (07:20→20:29)
--- NOTE | 2022-04-29 07:25 | NUR ---
BS WAS 159. WILL GIVE INSULIN FOR COVERAGE
--- NOTE | 2022-04-29 08:00 | NUR ---
RECEIVED ENDORSEMENT FROM MANUFACTURING MANAGEMENT ASSOCIATE NURSE FOR CONTINUITY OF CARE. PATIENT ASLEEP NO DISTRESS NOTED. RESPIRATION EVEN AND NOT LABORED NO SHORTNESS OF BREATH ON ROOM AIR. IV SITE ON RIGHT HAND [place] 20 TKO. ALL SAFETY MEASURE IN PLACE.
[2022-04-29] MEDS: INSULIN LISPRO SLIDING SCALE 100 UNITS/ML VIAL SUBQ PRN ×4 (08:03→20:40)
--- NOTE | 2022-04-29 08:06 | NUR ---
GAVE 2 UNITS OF HUMALOG. PATIENT TOLERATED INJECTION WELL. WILL ENDORSE CARE TO DAY SHIFT.
--- NOTE | 2022-04-29 08:06 | NUR ---
ENDORSED TO DAY SHIFT FOR CONTINUITY OF CARE. PATIENT IS STABLE.
[2022-04-29] MEDS: amLODIPine 5 MG TAB PO SCH (08:32)
[2022-04-29] MEDS: INSULIN LANTUS 100 UNITS/ML 10 ML VIAL SUBQ SCH (08:37)
[2022-04-29] MEDS: HYDRAGUARD CREAM TP SCH (08:38)
--- NOTE | 2022-04-29 08:43 | NUR ---
GIVEN ALL DUE MEDICATION TOLERATED WELL. PATIENT NOTED WITH CONFUSION. REDIRECTED.
[2022-04-29] MEDS ORDERED: LANTUS SUBQ (10:01)
[2022-04-29] MEDS ORDERED: AMLO-3 PO (10:01)
--- NOTE | 2022-04-29 11:07 | NUR ---
NOTED PATIENT WITH DISCHARGE ORDER CALLED [facility] SPOKE TO MONSTER THAT PATIENT CAN'T COME BACK THERE AND NEED TO CONTACT FROM SERVICING MANAGER FROM [facility] SERVICING MANAGER CALLED 2X NO ANSWER WILL TRY AGAIN LATER.
[2022-04-29] MEDS ORDERED: [UNRECOGNIZED DRUG - CODE] IV (11:53)
[2022-04-29] MEDS: SKINTEGRITY HYDROGEL TP SCH (12:15)
--- NOTE | 2022-04-29 12:20 | NUR ---
BLOOD SUGAR CHECK GIVEN INSULIN COVERAGE FOR BS 324.
[2022-04-29] MEDS: CHLORHEXADINE GLUC 2% CLOTH TP SCH (15:27)
[2022-04-29] MEDS: MUPIROCIN CA NASAL 2% 1GM TUBE NS SCH (15:27)
--- NOTE | 2022-04-29 15:42 | NUR ---
RONNIE FERNANDEZ GAVE MORPHINE [address] GOODE AT [facility] SIDE ASSESS PATIENT. Addendum: 04/29/22 at 1645 by Brittney Goldman LVN WRONG PATIENT
[2022-04-29 16:00] VITALS: BP 140/60
--- NOTE | 2022-04-29 16:43 | NUR ---
PATIENT ALERT WITH CONFUSION NO DISTRESS NOTED. NO ADVERSE REACTION NOTED ON IV ANTIBIOTIC FOR UTI. ENCOURAGED AND OFFERED MORE FLUID TOLERATED. GOOD SKIN CARE. PROVIDED. CALL LIGHT WITH IN EASY REACH.
--- NOTE | 2022-04-29 16:55 | NUR ---
DISCHARGE PLANNING LASHONDA ATTEMPTED TO CONTACT [facility] STAFF/C PYTHON DEVELOPER TIFFANIE AT TO DISCUSS POSSIBLE COMPLICATIONS WITH DISCHARGE AND TO PLAN AN SAFE DISCHARGE FOR PATIENT. TIFFANIE WAS NOT AVAILABLE AND LASHONDA LEFT HER A VOICE MAIL MS WITH DIRECT CONTACT INFORMATION AND A REQUEST FOR A CALL BACK SCHUYLER. Addendum: 04/30/22 at 1306 by Christina MAY LATE ENTRY CALL WAS ABOUT 10:30AM DISCHARGE PLANNING SW CONTACT [facility] STAFF/C PYTHON DEVELOPER TIFFANIE AT TO DISCUSS PATIENT'S STATUS. SPOKE TO MONSTER (FACILITY STAFF) WHO STATED THAT KAYLAH WAS NOT IN TODAY AND WILL NOT BE IN UNTIL TOMORROW. LASHONDA ASKED MONSTER THE REASONS WHY [facility] WILL NOT ACCEPT PATIENT BACK. PER MONSTER THE WHEELCHAIR RENTAL CLERK KAYLAH RECEIVED A CALL FROM SAVITA SLICE CUTTING MACHINE OPERATOR HELPER CHANNING WHO STATED THAT PATIENT SEEMS TO BE IN NEED OF HIGHER LEVEL OF CARE THAT [facility] IS UNABLE TO PROVIDE. THEREFORE; SHE WILL BE REFERREED AND SEND TO A SNF FOR HALF-WAY CARE. LASHONDA THANKED HER FOR THE INFORMATION AND ENDED THE CALL. LATE ENTRY CALL WAS ABOUT 11:00AM SAVITA SNELL CALL PAT[facility] ABOUT PATIENT STATUS AND DISCUSS HER REFERRAL AND SEARCH FOR A SNF. PER LASHONDA SNELL SHE HAS INITIATED THE SEARCH FOR SNF AND SEND A REFERRAL TO [facility] AND AT THIS POINT IS WAITING FOR AN ANSWER, LASHONDA AGREE AND ASKED LASHONDA SNELL IF SHE WANTED FOR LASHONDA TO SEND ANOTHER REFERRAL TO [facility] SNF [place]. SAVITA GALLEGO AGREED AND STATED THAT IF PATIENT GETS ACCEPTED TO [facility] SNF TO CONTACT HER TO LET HER KNOW AND SET UP ALL INFORMATION WITH INS. TO GET PATIENT TRANSFER TO FACILITY SOON POSSIBLE. [facility]/LASHONDA AGREED AND WILL CONTINUE CONTACT NEEDED. LASHONDA FAXED PATIENT'S INFORMATION AND CLINICALS TO [facility] AT WITH COMPLETED CONFIRMATION AT ABOUT 11:19AM Addendum: 04/30/22 at 6593 by Christina De León SISSY FROM [facility] CALL LASHONDA STATING THAT THEY RECEIVED PATIENT'S REFERRAL AND CLINICAL PACKET AND AFTER REVIEWING PATIENT'S INFORMATION; PATIENT IS BEEN ACCEPTED TO THEIR FACILITY. LASHONDA INFORMED SISSY THAT SAVITA ROSE AND SW WORKING ON PLACEMENT FOR PATIENT HAS TO BE CONTACTED TO INFORM HER OF PATIENT'S ACCEPTANCE. SISSY AGREE. LASHONDA PROVIDED HER WITH HER NUMBER AND ALSO LET HER KNOW THAT SW WILL BE CALL BY [facility] TO GIVE HER THE INFORMATION AND [facility]/SISSY CONTACT NUMBER TO DISCUSS PLACEMENT ACCEPTANCE. SISSY AGREED AND ENDED THE CALL. LASHONDA CALL SAVITA SNELL AT AND INFORM HER THAT PATIENT HAS BEEN ACCEPTED TO [facility]; WHICH IS A CONTRACTED FACILITY WITH SAVITA. SAVITA SNELL AGREED REQUESTED [facility] CONTACT NUMBER FOR SISSY AND STATED THAT SHE WILL PLACE A CALL TO HER AND SET UP PATIENT PLACEMENT AND TRANSPORT TO FACILITY. LASHONDA AGREED AND ENDED THE CALL. CM/SW WILL FOLLOW UP NEEDED.
--- NOTE | 2022-04-29 19:46 | NUR ---
GAVE REPORT TO FIRE CHIEF'S AIDE NURSE FOR CONTINUITY OF CARE.
--- NOTE | 2022-04-29 20:00 | NUR ---
RECEIVED BEDSIDE REPORT FROM DAY NURSE REGARDING THE PT FOR CONTINUITY OF CARE. PT AWAKE BUT CONFUSED. PT NOT IN ANY DISTRESS AND NO COMPLAIN AT THIS TIME. PT SITTING UPRIGHT IN BED WATCHING TV. PT IV ON THE RT FOREARM, LEAKING AND ALMOST OUT. DC/D THE IV, CANNULA INTACT. WILL PLACE A NEW IV LATER. FALL PRECAUTION IMPLEMENTED. REMINDED PT NOT TO GET OOB. PT VERBALIZED UNDERSTANDING BUT NEEDS REINFORCEMENT. CALL LIGHT WITHIN REACH. WILL CONTINUE OBSERVATION.
[2022-04-29] MEDS: LEVOFLOXACIN 250 MG/D5 PREMIX 50 ML IV SCH (20:29)
[2022-04-29 22:00] VITALS: BP 155/84
--- NOTE | 2022-04-29 22:00 | NUR ---
ALL DUE MEDS GIVEN ORDERED. NO ADVERSE DRUG REACTION NOTED AND NO COMPLAIN FROM THE PT. WILL CONTINUE OBSERVATION.
[2022-04-30] VITALS: BP 155/84
--- NOTE | 2022-04-30 | NUR ---
PATIENT VITALS SIGNS STABLE, AFEBRILE, SATING 97% ON RA. NO COMPLAIN OF PAIN AT THIS TIME. CALL LIGHT WITHIN REACH. WILL CONTINUE OBSERVATION.
[2022-04-30] MEDS: Z-GUARD PASTE TP SCH ×2 (00:48→13:00)
--- NOTE | 2022-04-30 02:00 | NUR ---
PATIENT ASLEEP AT THIS TIME. VISIBLE CHEST RISE AND FALL NOTED. PT NOT IN ANY DISTRESS. WILL CONTINUE OBSERVATION.
--- NOTE | 2022-04-30 04:00 | NUR ---
MADE ROUNDS AGAIN , PT STILL ASLEEP AND NOT IN ANY DISTRESS. WILL CONTINUE OBSERVATION
--- NOTE | 2022-04-30 06:16 | NUR ---
NO ACUTE EVENT THROUGHOUT THE NIGHT. PT STABLE AND NOT IN ANY DISTRESS. NO COMPLAIN AT THIS TIME. ALL NEEDS ATTENDED. WILL ENDORSE THE PATIENT TO THE ONCOMING NURSE FOR CONTINUITY OF CARE.
[2022-04-30] MEDS: BLOOD GLUCOSE MONITORING 1 DEV DEV FS SCH ×4 (06:27→21:45)
[2022-04-30] MEDS: INSULIN LISPRO SLIDING SCALE 100 UNITS/ML VIAL SUBQ PRN ×4 (06:29→21:46)
--- NOTE | 2022-04-30 07:16 | NUR ---
ENDORSED PATIENT TO THE ONCOMING NURSE. PATIENT STABLE AND NOT IN DISTRESS. SIGNING OFF.
--- NOTE | 2022-04-30 07:37 | NUR ---
08\16\22 0800 GOT REPORT FROM THE NIGHT NURSE PT SLEEPING NO SOB.[id number]
[2022-04-30 08:00] VITALS: BP 159/78
[2022-04-30] MEDS: amLODIPine 5 MG TAB PO SCH (08:38)
[2022-04-30] MEDS: INSULIN LANTUS 100 UNITS/ML 10 ML VIAL SUBQ SCH (08:41)
[2022-04-30] MEDS: HYDRAGUARD CREAM TP SCH (08:43)
--- NOTE | 2022-04-30 11:58 | NUR ---
PHYSICAL THERAPY CO-SIGN The Physical Therapy Progress Notes documented by Door Closer Mechanic have been reviewed. Reviewed/Co-Signed by: Yolette Mccabe Documentation Done by: FILOMENA BUCKNER PTA Addendum: 04/30/22 at 1159 by Yolette Mccabe PT Amended: Links added.
[2022-04-30] MEDS: SKINTEGRITY HYDROGEL TP SCH (13:00)
[2022-04-30] MEDS: MUPIROCIN CA NASAL 2% 1GM TUBE NS SCH (15:25)
[2022-04-30] MEDS: CHLORHEXADINE GLUC 2% CLOTH TP SCH (15:25)
[2022-04-30 16:00] VITALS: BP 142/72
--- NOTE | 2022-04-30 19:15 | NUR ---
RECD. RESTING IN BED, AWAKE, A/OX1. RESPIRATION EVEN AND UNLABORED. IV SALINE LOCK AT THE LEFT FOREARM G20, PATENT AND INTACT. BEDBOUND AND INCONTINENT. REORIENTED TO HOSPITAL SETTING. SAFETY MEASURES ENFORCED. BED IN THE LOWEST POSITION. BED ON ALARM. CALL LIGHT IN REACH. DENIES PAIN 0/10.
--- NOTE | 2022-04-30 20:00 | NUR ---
Patient's Plan of Care was discussed and reviewed with YONG: FACUNDO
--- NOTE | 2022-04-30 21:39 | NUR ---
SCHEDULED MEDICATION FOR THE NIGHT ADMINISTERED. COOPERATIVE.
[2022-05-01] VITALS: BP 135/75
--- NOTE | 2022-05-01 | NUR ---
SLEEPING COMFORTABLY IN BED, RESPIRATION EVEN AND UNLABORED. VS STABLE.
[2022-05-01] MEDS: Z-GUARD PASTE TP SCH ×2 (01:29→13:40)
--- NOTE | 2022-05-01 02:37 | NUR ---
NO ATTEMPT TO GET OUT OF BED. STILL SLEEPING COMFORTABLY.
--- NOTE | 2022-05-01 04:00 | NUR ---
ABLE TO OBTAINED 450 ML URINE FROM THE CANISTER FROM [employer].
[2022-05-01] MEDS: BLOOD GLUCOSE MONITORING 1 DEV DEV FS SCH ×2 (06:32→12:15)
[2022-05-01] MEDS: INSULIN LISPRO SLIDING SCALE 100 UNITS/ML VIAL SUBQ PRN ×2 (06:34→12:17)
--- NOTE | 2022-05-01 07:00 | NUR ---
CONDITION REMAIN STABLE. WILL ENDORSE TO AM SHIFT NURSE FOR CONTINUITY OF CARE.
--- NOTE | 2022-05-01 07:15 | NUR ---
RECEIVED REPORT FROM COMMISSARY HELPER NURSE FOR CONTINUITY OF CARE. PT IS SLEEPING, EASILY AROUSABLE BY VERBAL STIMULI. RESPIRATIONS EVEN AND UNLABORED ON RA. NO DISTRESS NOTED. IV SITE ON [place]ANE[place]. PT ON [place]. CALL LIGHT WITHIN REACH. SAFETY PRECAUTIONS IN PLACE. WILL CONTINUE TO MONITOR.
[2022-05-01 08:00] VITALS: BP 149/72
[2022-05-01] MEDS: amLODIPine 5 MG TAB PO SCH (08:32)
[2022-05-01] MEDS: HYDRAGUARD CREAM TP SCH (08:33)
[2022-05-01] MEDS: INSULIN LANTUS 100 UNITS/ML 10 ML VIAL SUBQ SCH (08:33)
--- NOTE | 2022-05-01 08:42 | NUR ---
ADMINSITERED SCHEDULED MORNING MEDS. PT TEACHING ABOUT MEDS GIVEN. PT VERBALIZED UNDERSTANDING. PT SEEN AND CHECKED BY DR WILEY.
[2022-05-01 11:26] VITALS: BP 149/72
--- NOTE | 2022-05-01 12:27 | NUR ---
BLOOD SUGAR CHECK DONE. BS 255. SLIDING SCALE INSULIN ADMINISTERED.
--- NOTE | 2022-05-01 12:40 | NUR ---
REPORT GIVEN TO RONNIE HOLLY OF [facility].
--- NOTE | 2022-05-01 12:53 | NUR ---
DISCHARGE PAPER DISCUSSED WITH THE PT. PT UNABLE TO SIGN. CALLED AMINA KNAPP TO DISCUSS DC PAPERS BUT UNABLE TO PICK-UP PHONE. LEFT MESSAGE.
--- NOTE | 2022-05-01 13:38 | NUR ---
ASSISTED SPRING COILER HAND IN CLEANING AND CHANGING PT DIAPER. PT HAD BM. IMAGE TAKEN ON SACRAL AREA AND FILED AT PT CHART.
[2022-05-01] MEDS: SKINTEGRITY HYDROGEL TP SCH (13:40)
--- NOTE | 2022-05-01 14:25 | NUR ---
PT DC TO [facility]. TRANSPORT STAFF WHEELED PT OUT VIA GURNEY. REMOVED IV CATHETER INTACT. REMOVED ID WRIST BAND. ALL BELONGINGS TAKEN UPON DC. PT IS STABLE.
== END 2022-05-01 14:25 | DRG 637 ==
LOC: MED 12:37 → MTU 17:56
PROVIDERS: ADMIT Family Medicine; ATTEND Family Medicine
DX: E11.01 Type 2 diabetes mellitus with hyperosmolarity with coma (principal); G93.41 Metabolic encephalopathy; N39.0 Urinary tract infection, site not specified; E78.5 Hyperlipidemia, unspecified; Z20.822 Contact with and (suspected) exposure to COVID-19; M19.90 Unspecified osteoarthritis, unspecified site; I10 Essential (primary) hypertension; E83.42 Hypomagnesemia; E87.6 Hypokalemia; Z88.1 Allergy status to other antibiotic agents; Z88.5 Allergy status to narcotic agent; Z88.8 Allergy status to other drugs, medicaments and biological substances; Z79.899 Other long term (current) drug therapy; Z87.442 Personal history of urinary calculi; L89.159 Pressure ulcer of sacral region, unspecified stage
CPT/HCPCS: 36415; 70450; 71045; 80048; 80053; 80305; 81001; 82948; 83036; 83735; 84484; 85025; 87081; 87086; 93005; 97110; 97112; 97530; 99285; A6248; J0360; J1644; J1815; J1956; J3475; Q0092

== ENCOUNTER 2024-07-10 22:16 | Inpatient (IN) | payer OTHER, MEDICAID ==
[~2024-07-10] VITALS: Ht 170.2 cm; Wt 81.6 kg
[~2024-07-10 22:16] MED LIST changes: -ACET-2619 PO; +AMLO-3 PO; -ANTACID PO; -ATI.5 PO; +LANTUS SUBQ; -LEVO-481 PO; -PANT40EC PO; -TRAM50TA1 PO; -[UNRECOGNIZED DRUG - OTHER] PO
[2024-07-10 22:25] VITALS: O2SAT 92
[2024-07-10 22:49] LABS: BASOPHILS # (AUTO) 0.1 K/uL (0.00-0.22); BASOPHILS % (AUTO) 0.5 % (0.0-2.0); EOSINOPHILS % (AUTO) 0.1 % (0.0-4.0); HEMATOCRIT 43.6 % (36-48); LYMPHOCYTES # (AUTO) 1.6 K/uL (2.5-16.5); LYMPHOCYTES % (AUTO) 12.7 % (20.5-51.1); MEAN CORPUSCULAR HEMOGLOBIN 29 pg (27-31); MEAN CORPUSCULAR HGB CONC 32 g/dL (33-37); MEAN CORPUSCULAR VOLUME 89.6 fL (80-94); MONOCYTES # (AUTO) 0.3 K/uL (0.8-1.0); MONOCYTES % (AUTO) 2.1 % (1.7-9.3); NEUTROPHILS # (AUTO) 10.9 K/uL (1.8-7.7); NEUTROPHILS % (AUTO) 84.6 % (42.2-75.2); PLATELET COUNT (AUTO) 360 K/uL (140-450); RED BLOOD CELL COUNT(AUTO) 4.86 MIL/uL (4.20-5.40); RED CELL DISTRIBUTION WIDTH 15.5 % (11.6-13.7); WHITE BLOOD COUNT (AUTO) 12.9 K/uL (4.8-10.8)
[2024-07-10] MEDS ORDERED: MEROPENEM 1,000 MG VIAL IV ONE (22:52)
[2024-07-10 23:05] LABS: BLOOD GAS PCO2 38.3 mmHg (32.0-45.0); BLOOD GAS PH 7.269 (7.350-7.450); BLOOD GAS PO2 77.8 mmHg (83.0-108.0)
[2024-07-10 23:06] LABS: BLOOD GAS BASE EXCESS -9.1 mmol/L (-2.0-3.0); BLOOD GAS HCO3 17.2 mmol/L (21.0-28.0); BLOOD GAS O2 SAT% 92.9 % (94.0-98.0)
[2024-07-10] MEDS: NACL 0.9% 1,000 ML IV ONE (23:10)
[2024-07-10 23:11] LABS: ANION GAP 16.3 (8-16); CALCIUM 9.5 mg/dL (8.5-10.1); CARBON DIOXIDE 24.8 mmol/L (21-32); CHLORIDE 100 mmol/L (98-107); CREATININE 1.4 mg/dL (0.6-1.3); GLUCOSE 395 mg/dL (74-106); POTASSIUM 5.1 mmol/L (3.5-5.1); SODIUM SERUM 136 mmol/L (136-145); UREA NITROGEN, BLOOD 35 mg/dL (7-18)
[2024-07-10] MEDS: MEROPENEM 1,000 MG in NACL 0.9% 50 ML IV ONE (23:13)
[2024-07-10 23:17] LABS: ALBUMIN 3.1 g/dL (3.4-5.0); BILIRUBIN,DIRECT 0.1 mg/dL (0.0-0.3); TOTAL BILIRUBIN 0.3 mg/dL (0.0-1.0); TOTAL PROTEIN, SERUM 8.2 g/dL (6.4-8.2)
[2024-07-10 23:22] LABS: INR 0.95 (0.8-1.2); PARTIAL THROMBOPLASTIN TIME 22.5 secs (22-35.6)
[2024-07-10 23:26] LABS: LACTIC ACID 5.1 mmol/L (0.4-2.0)
[2024-07-10] MEDS: ALBUTEROL 0.083% 2.5 MG/3 ML NEBU INH ONE (23:36)
[2024-07-10] MEDS ORDERED: VANCOMYCIN 1,000 MG VIAL ONE (23:58)
[2024-07-11] VITALS (8 sets, daily range): BP systolic 43–171; BP diastolic 26–106; PULSE 41–133; RESP 22–43; TEMP 97.5–97.8; O2SAT 89–99
[2024-07-11] MEDS ORDERED: NOREPINEPHRINE 4 MG in DEXTROSE 5% 250 ML IV ONE (00:15)
[2024-07-11] MEDS: VANCOMYCIN 1,000 MG in DEXTROSE 5% 250 ML IV ONE (00:25)
[2024-07-11 00:52] LABS: APPEARANCE,URINE CLOUDY (CLEAR); BILIRUBIN,URINE NEGATIVE (NEGATIVE); BLOOD, URINE 3+ (NEGATIVE); COLOR,URINE YELLOW (YELLOW); LEUKOCYTE ESTERASE ,URINE 3+ (NEGATIVE); NITRITE, URINE NEGATIVE (NEGATIVE); PROTEIN,URINE 2+ (NEGATIVE); UGLUCOSE NEGATIVE (NEGATIVE); UROBILINOGEN,URINE 0.2 EU/dL (0.2 - 1)
[2024-07-11 01:00] LABS: BACTERIA,URINE 4+ /HPF (None Seen); SQUAMOUS EPITHELIAL CELL,UR 0-3 (FEW) /LPF (0-3 (FEW)); WBC,URINE TOO MANY TO COUNT /HPF (0-5)
[2024-07-11 01:38] LABS: FLU A ANTIGEN negative (NEGATIVE); FLU B ANTIGEN negative (NEGATIVE)
[2024-07-11] MEDS ORDERED: INSU100S5 IJ (03:23)
[2024-07-11] MEDS ORDERED: MAGN400S60 PO (03:23)
[2024-07-11] MEDS ORDERED: DOCU-299 PO (03:23)
[2024-07-11] MEDS ORDERED: VANCOMYCIN PER PHARMACY MC PRN (04:30)
[2024-07-11] MEDS ORDERED: ACETAMINOPHEN 325 MG TAB PO PRN (04:45)
[2024-07-11] MEDS ORDERED: NACL 0.9% 1,000 ML IV ONE (05:05)
[2024-07-11] MEDS: NACL 0.9% 1,000 ML IV ONE (05:07)
[2024-07-11] MEDS: methylPREDNISolone SS 40 MG/ML VIAL IVP SCH (05:07)
[2024-07-11 06:47] LABS: HEMATOCRIT 41.7 % (36-48); MEAN CORPUSCULAR HEMOGLOBIN 29 pg (27-31); MEAN CORPUSCULAR HGB CONC 31 g/dL (33-37); MEAN CORPUSCULAR VOLUME 92.8 fL (80-94); PLATELET COUNT (AUTO) 282 K/uL (140-450); RED BLOOD CELL COUNT(AUTO) 4.49 MIL/uL (4.20-5.40); WHITE BLOOD COUNT (AUTO) 17.3 K/uL (4.8-10.8)
[2024-07-11 06:56] LABS: NEUTROPHILS # (AUTO) 15.1 K/uL (1.8-7.7)
[2024-07-11] MEDS ORDERED: MIDODRINE 5 MG TAB PO SCH (07:00)
[2024-07-11 07:11] LABS: LACTIC ACID 9.3 mmol/L (0.4-2.0)
[2024-07-11 07:31] LABS: ALANINE AMINOTRANSFERASE 117 U/L (12-78); ALBUMIN 2.7 g/dL (3.4-5.0); ALKALINE PHOSPHATASE 103 U/L (50-136); ANION GAP 21.9 (8-16); ASPARTATE AMINOTRANSFERASE 493 U/L (15-37); CALCIUM 8.7 mg/dL (8.5-10.1); CARBON DIOXIDE 19.1 mmol/L (21-32); CHLORIDE 101 mmol/L (98-107); CREATININE 2.1 mg/dL (0.6-1.3); MAGNESIUM 2.7 mg/dL (1.8-2.4); PHOSPHORUS 6.4 mg/dL (2.5-4.9); SODIUM SERUM 135 mmol/L (136-145); TOTAL BILIRUBIN 0.4 mg/dL (0.0-1.0); TOTAL PROTEIN, SERUM 7.2 g/dL (6.4-8.2); UREA NITROGEN, BLOOD 43 mg/dL (7-18)
[2024-07-11 07:34] LABS: GLUCOSE 401 mg/dL (74-106)
[2024-07-11] MEDS: ALBUTEROL SULFATE/IPRATROPIU 3 ML SOL IH SCH (07:38)
[2024-07-11 08:36] LABS: LYMPHOCYTES % (MANUAL) 11 % (20-46); MONOCYTES % (MANUAL) 7 % (5-12)
[2024-07-11] MEDS ORDERED: MEROPENEM 1,000 MG in NACL 0.9% 50 ML IV SCH (09:00)
== END 2024-07-11 08:40 | DRG 871 ==
LOC: MED 22:16 → MTU 07-11 02:46
PROVIDERS: ADMIT Student in an Organized Health Care Education/Training Program; ATTEND Student in an Organized Health Care Education/Training Program
PROC: 5A09357 Assistance with Respiratory Ventilation, Less than 24 Consecutive Hours, Continuous Positive Airway Pressure (ICD-10-PCS; principal; 2024-07-11)
DX: A41.9 Sepsis, unspecified organism (principal); J69.0 Pneumonitis due to inhalation of food and vomit; J96.01 Acute respiratory failure with hypoxia; N39.0 Urinary tract infection, site not specified; N17.9 Acute kidney failure, unspecified; Z20.822 Contact with and (suspected) exposure to COVID-19; E11.9 Type 2 diabetes mellitus without complications; I10 Essential (primary) hypertension; F32.A Depression, unspecified; Z88.5 Allergy status to narcotic agent; Z88.8 Allergy status to other drugs, medicaments and biological substances; Z79.4 Long term (current) use of insulin; Z79.899 Other long term (current) drug therapy; Z66 Do not resuscitate
CPT/HCPCS: 36415; 36600; 71045; 80048; 80053; 80076; 81001; 82803; 83605; 83735; 84100; 85025; 85610; 85730; 87040; 87086; 87186; 93005; 94640; 94660; 96365; 96367; 99291; J2185; J2919; J3370; J7613; Q0092